=== PATIENT | male | born 1990 | race Caucasian/White ===

== ENCOUNTER 2017-12-25 15:13 | Outpatient (CLI) | payer OTHER | END 2017-12-25 15:53 | disposition home or self-care (01) | LOC: HPC 15:13 | DX: K86.0 Alcohol-induced chronic pancreatitis (principal) | CPT/HCPCS: Z7500 ==

== ENCOUNTER 2018-10-21 01:00 | Emergency (ER) | payer OTHER ==
[2018-10-21] MEDS ORDERED: TRANEXAMIC ACID 1,000 MG/10 ML VIAL IRR (01:29)
[2018-10-21] MEDS: KETOROLAC 15 MG INJ IM (01:37)
[2018-10-21] MEDS: DIPHTH/TET/ACEL PERTUSS (ADULT) 0.5 ML VIAL IM* (01:38)
== END 2018-10-21 02:20 | disposition home or self-care (01) ==
LOC: E/R 01:00
DX: S51.811A Laceration without foreign body of right forearm, initial encounter (principal); S60.812A Abrasion of left wrist, initial encounter; W25.XXXA Contact with sharp glass, initial encounter; Y92.9 Unspecified place or not applicable; Z23 Encounter for immunization
CPT/HCPCS: 12001; 73110-LT; 73110-RT; 73120-52; 90471; 90715; 96372; 99284-25

== ENCOUNTER 2019-03-02 06:04 | Emergency (ER) | payer OTHER ==
[2019-03-02] MEDS: KETOROLAC 30 MG INJ IV (06:49)
[2019-03-02] MEDS: SOD CHLORIDE 0.9% 1,000 ML IV (06:49)
[2019-03-02] MEDS: ONDANSETRON 4 MG INJ IV (06:49)
[2019-03-02 06:57] LABS: ADD MAN DIFF? NO
[2019-03-02 07:01] LABS: ADD UMIC YES; BASOPHILS % 0.8 % (0.0-2.0); EOSINOPHILS # 0.1 10^3/ul (0.0-0.5); EOSINOPHILS % 2.5 % (0.0-7.0); HEMATOCRIT 47.9 % (42.0-52.0); HEMOGLOBIN 16.7 g/dl (14.0-18.0); LYMPHOCYTES # 0.7 10^3/ul (0.8-2.9); LYMPHOCYTES % 18.5 % (15.0-51.0); MEAN CORPUSCULAR HEMOGLOBIN 31.7 pg (29.0-33.0); MEAN CORPUSCULAR HGB CONC 34.9 g/dl (32.0-37.0); MEAN CORPUSCULAR VOLUME 91.1 fl (82.0-101.0); MEAN PLATELET VOLUME 10.2 fl (7.4-10.4); MONOCYTE # 0.5 10^3/ul (0.3-0.9); MONOCYTES % 14.6 % (0.0-11.0); NEUTROPHIL # 2.3 10^3/ul (1.6-7.5); NEUTROPHILS % 63.3 % (39.0-77.0); PLATELET COUNT 166 10^3/UL (140-415); RED BLOOD COUNT 5.26 10^6/ul (4.70-6.10); RED CELL DISTRIBUTION WIDTH 11.5 % (11.5-14.5); UR ASCORBIC ACID NEGATIVE (NEGATIVE); UR BILIRUBIN (Dip) NEGATIVE (NEGATIVE); UR BLOOD (Dip) NEGATIVE (NEGATIVE); UR CLARITY CLEAR (CLEAR); UR COLOR AMBER (YELLOW); UR GLUCOSE (Dip) NEGATIVE (NEGATIVE); UR KETONES (Dip) TRACE mg/dL (NEGATIVE); UR LEUKOCYTE ESTERASE (Dip) NEGATIVE Leu/ul (NEGATIVE); UR MUCUS FEW /HPF (NONE SEEN); UR NITRITE (Dip) NEGATIVE (NEGATIVE); UR RBC 0 /HPF (0-5); UR SPECIFIC GRAVITY (Dip) 1.019 (1.003-1.030); UR TOTAL PROTEIN (Dip) 1+ mg/dl (NEGATIVE); UR UROBILINOGEN (Dip) 2+ mg/dL (NEGATIVE); UR WBC 1 /HPF (0-5)
[2019-03-02 07:01] LABS: WHITE BLOOD COUNT 3.6 10^3/ul (4.8-10.8)
[2019-03-02 07:19] LABS: ALANINE AMINOTRANSFERASE 891 IU/L (13-69); ALBUMIN 4.3 g/dl (3.3-4.9); ALKALINE PHOSPHATASE 153 IU/L (42-121); ANION GAP 11 (5-13); BILIRUBIN,INDIRECT 1.4 mg/dl (0-1.1); BLOOD UREA NITROGEN 12 mg/dl (7-20); CALCIUM 8.8 mg/dl (8.4-10.2); CARBON DIOXIDE 29 mmol/L (21-31); CHLORIDE 97 mmol/L (97-110); CREATININE 0.79 mg/dl (0.61-1.24); Estimated GFR > 60 mL/min (>60); GLUCOSE 114 mg/dl (70-220); LIPASE 154 U/L (23-300); POTASSIUM 3.8 mmol/L (3.5-5.1); SODIUM 137 mmol/L (135-144); TOTAL PROTEIN 7.6 g/dl (6.1-8.1)
[2019-03-02 07:25] LABS: ASPARTATE AMINO TRANSFERASE 834 IU/L (15-46)
[2019-03-02] MEDS: morphine 4 MG/ML VIAL IV (07:55)
== END 2019-03-02 09:29 | disposition home or self-care (01) ==
LOC: FTE 06:04
DX: R10.13 Epigastric pain (principal); R11.2 Nausea with vomiting, unspecified
CPT/HCPCS: 36415; 74176; 76705; 80053; 81001; 83690; 85025; 96374; 96375; 99285-25

== ENCOUNTER 2019-04-09 12:43 | Inpatient (IN) | payer OTHER ==
[2019-04-09] MEDS: KETOROLAC 30 MG INJ IV (13:44)
[2019-04-09] MEDS: ONDANSETRON 4 MG INJ IV ×3 (13:44→22:04)
[2019-04-09] MEDS: SOD CHLORIDE 0.9% 1,000 ML IV ×2 (13:45→22:06)
[2019-04-09 13:59] LABS: ADD MAN DIFF? NO
[2019-04-09 14:02] LABS: WHITE BLOOD COUNT 3.9 10^3/ul (4.8-10.8)
[2019-04-09 14:02] LABS: EOSINOPHILS # 0.1 10^3/ul (0.0-0.5); EOSINOPHILS % 2.8 % (0.0-7.0); HEMATOCRIT 49.3 % (42.0-52.0); HEMOGLOBIN 17.2 g/dl (14.0-18.0); LYMPHOCYTES # 1.2 10^3/ul (0.8-2.9); LYMPHOCYTES % 31.3 % (15.0-51.0); MEAN CORPUSCULAR HEMOGLOBIN 31.7 pg (29.0-33.0); MEAN CORPUSCULAR HGB CONC 34.9 g/dl (32.0-37.0); MEAN CORPUSCULAR VOLUME 90.8 fl (82.0-101.0); MEAN PLATELET VOLUME 10.6 fl (7.4-10.4); MONOCYTE # 0.4 10^3/ul (0.3-0.9); MONOCYTES % 9.7 % (0.0-11.0); NEUTROPHIL # 2.2 10^3/ul (1.6-7.5); NEUTROPHILS % 54.9 % (39.0-77.0); PLATELET COUNT 181 10^3/UL (140-415); RED BLOOD COUNT 5.43 10^6/ul (4.70-6.10); RED CELL DISTRIBUTION WIDTH 11.6 % (11.5-14.5)
[2019-04-09 14:05] LABS: ADD UMIC YES; UR ASCORBIC ACID NEGATIVE (NEGATIVE); UR BILIRUBIN (Dip) NEGATIVE (NEGATIVE); UR BLOOD (Dip) 1+ mg/dL (NEGATIVE); UR CLARITY CLEAR (CLEAR); UR COLOR AMBER (YELLOW); UR GLUCOSE (Dip) NEGATIVE (NEGATIVE); UR KETONES (Dip) NEGATIVE (NEGATIVE); UR LEUKOCYTE ESTERASE (Dip) NEGATIVE Leu/ul (NEGATIVE); UR MUCUS FEW /HPF (NONE SEEN); UR NITRITE (Dip) NEGATIVE (NEGATIVE); UR RBC 1 /HPF (0-5); UR SPECIFIC GRAVITY (Dip) 1.024 (1.003-1.030); UR TOTAL PROTEIN (Dip) 2+ mg/dl (NEGATIVE); UR UROBILINOGEN (Dip) 1+ mg/dL (NEGATIVE); UR WBC 1 /HPF (0-5)
[2019-04-09] MEDS: morphine 4 MG/ML VIAL IV ×3 (14:17→22:05)
[2019-04-09 14:21] LABS: ALANINE AMINOTRANSFERASE 193 IU/L (13-69); ALBUMIN 4.7 g/dl (3.3-4.9); ALBUMIN/GLOBULIN RATIO 1.17; ALKALINE PHOSPHATASE 152 IU/L (42-121); ANION GAP 10 (5-13); ASPARTATE AMINO TRANSFERASE 169 IU/L (15-46); BILIRUBIN,INDIRECT 1.8 mg/dl (0-1.1); BILIRUBIN,TOTAL 1.8 mg/dl (0.2-1.3); BLOOD UREA NITROGEN 17 mg/dl (7-20); CALCIUM 9.9 mg/dl (8.4-10.2); CARBON DIOXIDE 28 mmol/L (21-31); CHLORIDE 100 mmol/L (97-110); CREATININE 0.96 mg/dl (0.61-1.24); Estimated GFR > 60 mL/min (>60); GLUCOSE 172 mg/dl (70-220); LIPASE 669 U/L (23-300); POTASSIUM 4.5 mmol/L (3.5-5.1); SODIUM 138 mmol/L (135-144); TOTAL PROTEIN 8.7 g/dl (6.1-8.1)
[2019-04-09 14:22] LABS: PROTIME 13.3 Sec (11.9-14.9)
[2019-04-09 14:23] LABS: PARTIAL THROMBOPLASTIN TIME 28.6 Sec (23.0-35.0)
[2019-04-09] MEDS: METOCLOPRAMIDE 10 MG INJ IV (16:11)
[2019-04-09] MEDS: SOD CHLORIDE 0.9% 100 ML (16:39)
[2019-04-09] MEDS: IOHEXOL 300MG/ML 150 ML BTL (16:39)
[2019-04-09] MEDS: HYDROmorphONE 2 MG/ML SYG IV (19:01)
[2019-04-09] MEDS ORDERED: ZOLPIDEM 5 MG TAB PO (22:00)
[2019-04-09] MEDS ORDERED: morphine 4 MG/ML VIAL IV (22:00)
[2019-04-09] MEDS ORDERED: ONDANSETRON 4 MG INJ IV (22:00)
[2019-04-10] MEDS: morphine 4 MG/ML VIAL IV ×2 (00:59→04:56)
[2019-04-10] MEDS: SOD CHLORIDE 0.9% 1,000 ML IV ×4 (04:54→20:08)
[2019-04-10 05:31] LABS: ADD MAN DIFF? NO
[2019-04-10 05:37] LABS: BASOPHILS % 0.5 % (0.0-2.0); EOSINOPHILS # 0.2 10^3/ul (0.0-0.5); HEMATOCRIT 42.2 % (42.0-52.0); HEMOGLOBIN 14.6 g/dl (14.0-18.0); LYMPHOCYTES # 1.1 10^3/ul (0.8-2.9); LYMPHOCYTES % 18.1 % (15.0-51.0); MEAN CORPUSCULAR HEMOGLOBIN 32.2 pg (29.0-33.0); MEAN CORPUSCULAR HGB CONC 34.6 g/dl (32.0-37.0); MEAN PLATELET VOLUME 10.7 fl (7.4-10.4); MONOCYTE # 0.6 10^3/ul (0.3-0.9); MONOCYTES % 10.2 % (0.0-11.0); NEUTROPHIL # 4.3 10^3/ul (1.6-7.5); NEUTROPHILS % 67.9 % (39.0-77.0); PLATELET COUNT 148 10^3/UL (140-415); RED BLOOD COUNT 4.54 10^6/ul (4.70-6.10); RED CELL DISTRIBUTION WIDTH 11.9 % (11.5-14.5)
[2019-04-10 05:37] LABS: WHITE BLOOD COUNT 6.3 10^3/ul (4.8-10.8)
[2019-04-10 06:11] LABS: CHOLESTEROL 199 mg/dl (100-200)
[2019-04-10 06:11] LABS: ALANINE AMINOTRANSFERASE 128 IU/L (13-69); ALBUMIN 3.6 g/dl (3.3-4.9); ALBUMIN/GLOBULIN RATIO 1.28; ALKALINE PHOSPHATASE 87 IU/L (42-121); AMYLASE 283 U/L (11-123); ANION GAP 10 (5-13); ASPARTATE AMINO TRANSFERASE 87 IU/L (15-46); BILIRUBIN,INDIRECT 1.1 mg/dl (0-1.1); BILIRUBIN,TOTAL 1.1 mg/dl (0.2-1.3); BLOOD UREA NITROGEN 12 mg/dl (7-20); CALCIUM 8.7 mg/dl (8.4-10.2); CARBON DIOXIDE 25 mmol/L (21-31); CHLORIDE 107 mmol/L (97-110); CHOL/HDL RATIO 4.1 RATIO; CREATININE 0.92 mg/dl (0.61-1.24); Estimated GFR > 60 mL/min (>60); GLUCOSE 123 mg/dl (70-220); HDL CHOLESTEROL 48 mg/dl (28-63); LDL CHOLESTEROL,CALCULATED 92 mg/dl; POTASSIUM 3.8 mmol/L (3.5-5.1); SODIUM 142 mmol/L (135-144); TOTAL PROTEIN 6.4 g/dl (6.1-8.1); TRIGLYCERIDES 294 mg/dl (0-149)
[2019-04-10 06:35] LABS: LIPASE 3632 U/L (23-300)
[2019-04-10] MEDS: SOD CHLORIDE 0.9% 100 ML (07:34)
[2019-04-10] MEDS: IOHEXOL 100 ML (07:35)
[2019-04-10] MEDS: IOHEXOL 350MG/ML 50 ML BTL (07:36)
[2019-04-10] MEDS: morphine 2 MG INJ IV (08:10)
[2019-04-10] MEDS: HYDROmorphONE 1 MG/ML SYG IV ×4 (11:15→23:46)
[2019-04-11] MEDS: SOD CHLORIDE 0.9% 1,000 ML IV ×5 (00:40→18:17)
[2019-04-11] MEDS: HYDROmorphONE 1 MG/ML SYG IV ×3 (03:05→10:51)
[2019-04-11 06:13] LABS: LIPASE 1554 U/L (23-300)
[2019-04-11] MEDS: DOCUSATE SODIUM 100 MG CAP PO ×2 (12:44→20:03)
[2019-04-11] MEDS: FAMOTIDINE 20 MG TAB PO ×2 (12:44→20:03)
[2019-04-11] MEDS ORDERED: ONDANSETRON (ODT) 4 MG TAB ODT (13:00)
[2019-04-11] MEDS ORDERED: DOCUSATE SODIUM 100 MG CAP PO (13:00)
[2019-04-11] MEDS ORDERED: FAMOTIDINE 20 MG TAB PO (13:00)
[2019-04-11] MEDS ORDERED: morphine 2 MG INJ IV (13:30)
[2019-04-11] MEDS: HYDROmorphONE 2 MG TAB PO ×3 (13:52→23:09)
[2019-04-12] MEDS: SOD CHLORIDE 0.9% 1,000 ML IV ×3 (00:59→14:04)
[2019-04-12] MEDS: HYDROmorphONE 2 MG TAB PO ×5 (04:50→23:00)
[2019-04-12 06:18] LABS: ADD MAN DIFF? NO
[2019-04-12 06:27] LABS: BASOPHILS % 0.5 % (0.0-2.0); EOSINOPHILS # 0.3 10^3/ul (0.0-0.5); EOSINOPHILS % 7.7 % (0.0-7.0); HEMATOCRIT 40.5 % (42.0-52.0); HEMOGLOBIN 14.2 g/dl (14.0-18.0); LYMPHOCYTES # 1.1 10^3/ul (0.8-2.9); LYMPHOCYTES % 25.8 % (15.0-51.0); MEAN CORPUSCULAR HEMOGLOBIN 32.3 pg (29.0-33.0); MEAN CORPUSCULAR HGB CONC 35.1 g/dl (32.0-37.0); MEAN CORPUSCULAR VOLUME 92.3 fl (82.0-101.0); MEAN PLATELET VOLUME 10.6 fl (7.4-10.4); MONOCYTE # 0.4 10^3/ul (0.3-0.9); MONOCYTES % 10.1 % (0.0-11.0); NEUTROPHIL # 2.4 10^3/ul (1.6-7.5); NEUTROPHILS % 55.7 % (39.0-77.0); RED BLOOD COUNT 4.39 10^6/ul (4.70-6.10); RED CELL DISTRIBUTION WIDTH 11.4 % (11.5-14.5)
[2019-04-12 06:27] LABS: WHITE BLOOD COUNT 4.3 10^3/ul (4.8-10.8)
[2019-04-12 06:47] LABS: PLATELET COUNT 130 10^3/UL (140-415)
[2019-04-12 06:55] LABS: LIPASE 873 U/L (23-300)
[2019-04-12 06:56] LABS: ALANINE AMINOTRANSFERASE 91 IU/L (13-69); ALBUMIN 3.7 g/dl (3.3-4.9); ALBUMIN/GLOBULIN RATIO 1.19; ALKALINE PHOSPHATASE 72 IU/L (42-121); ANION GAP 11 (5-13); ASPARTATE AMINO TRANSFERASE 62 IU/L (15-46); BILIRUBIN,INDIRECT 1.2 mg/dl (0-1.1); BILIRUBIN,TOTAL 1.2 mg/dl (0.2-1.3); BLOOD UREA NITROGEN 4 mg/dl (7-20); CALCIUM 8.8 mg/dl (8.4-10.2); CARBON DIOXIDE 29 mmol/L (21-31); CHLORIDE 103 mmol/L (97-110); CREATININE 0.73 mg/dl (0.61-1.24); Estimated GFR > 60 mL/min (>60); GLUCOSE 109 mg/dl (70-220); POTASSIUM 3.7 mmol/L (3.5-5.1); SODIUM 143 mmol/L (135-144); TOTAL PROTEIN 6.8 g/dl (6.1-8.1)
[2019-04-12] MEDS: FAMOTIDINE 20 MG TAB PO ×2 (09:01→20:07)
[2019-04-12] MEDS: DOCUSATE SODIUM 100 MG CAP PO ×2 (09:01→20:07)
[2019-04-13] MEDS: HYDROmorphONE 2 MG TAB PO ×3 (05:45→17:42)
[2019-04-13 06:48] LABS: LIPASE 450 U/L (23-300)
[2019-04-13] MEDS: FAMOTIDINE 20 MG TAB PO ×2 (10:05→20:33)
[2019-04-13] MEDS: DOCUSATE SODIUM 100 MG CAP PO ×2 (10:05→20:33)
[2019-04-13] MEDS: ZOLPIDEM 5 MG TAB PO (21:49)
[2019-04-14 06:08] LABS: LIPASE 402 U/L (23-300)
[2019-04-14] MEDS: DOCUSATE SODIUM 100 MG CAP PO (08:50)
[2019-04-14] MEDS: FAMOTIDINE 20 MG TAB PO (08:50)
== END 2019-04-14 14:45 | disposition home or self-care (01) | DRG 440 ==
LOC: FTE 12:43 → 2NE 19:36
DX: K85.20 Alcohol induced acute pancreatitis without necrosis or infection (principal); D69.6 Thrombocytopenia, unspecified; F15.90 Other stimulant use, unspecified, uncomplicated; F41.9 Anxiety disorder, unspecified
CPT/HCPCS: 74177; 74178; 76705; 80053; 80061; 80076; 81001; 82150; 83690; 85025; 85610; 85730